=== PATIENT | male | born 1975 | race Caucasian/White ===

== ENCOUNTER 2017-09-21 16:43 | Emergency (ER) | payer BC ==
[2017-09-21] MEDS ORDERED: Aspirin 325 MG Tab.EC PO ONE (16:58)
[2017-09-21] MEDS ORDERED: Sodium Chloride 0.9% 10 ML Syringe FLUSH PRN (16:58)
[2017-09-21] MEDS ORDERED: Nitroglycerin 0.4 MG Tab.SL SL ONE (17:01)
--- NOTE | 2017-09-21 17:11 | EDM.PDOC ---
ED HPI GENERAL MEDICAL PROBLEM - General Chief Complaint: Chest Pain Stated Complaint: CHEST PAINS Time Seen by Provider: 09/21/17 16:48 Source of Information: Reports: Patient History Limitations: Reports: No Limitations - History of Present Illness INITIAL COMMENTS - FREE TEXT/NARRATIVE: 42-year-old male presents for evaluation and treatment of chest pain. Reports that the chest pain started about an hour prior to arrival in the ER. Identifies pain in the lower substernal/epigastric area with radiation to his back and up into his neck. He reports associated symptoms of shortness of breath and dizziness. He states that the pain was a 6 out of 10 earlier. It seems to be improving is currently 4 out of 10. Reports a sharp pain and tingling into his chin which lasted mayeb several seconds to a minute. No treatment prior to arrival in the ER, no aspirin. No nausea, vomiting, abdominal pain or any pain or swelling in the legs. Patient denies any cardiac history. Was seen in the ER approximately 2 years ago for palpitations. Diagnosed with anxiety. Did have a stress test after that which did not show any abnormalities. Patient reports that he chews tobacco. Denies any history of htn or high cholesterol. Family history of major cardiac events at a young age. Onset: Today, Sudden Duration: Hour(s): (1) right upper chest/epigastric/back Pain Score (Numeric/FACES): 4 - Related Data Allergies Allergy/AdvReac Type Severity Reaction Status Date / Time No Known Allergies Allergy Verified 09/21/17 16:52 Home Meds: Home Meds . [No Known Home Meds] 09/21/17 [History] Past Medical History - Past Health History Medical/Surgical History: Denies Medical/Surgical History Gastrointestinal History: Reports: GERD Social & Family History - Family History Family Medical History: Noncontributory - Caffeine Use Caffeine Use: Reports: Coffee - Recreational Drug Use Recreational Drug Use: No ED ROS GENERAL - Review of Systems Review Of Systems: See Below Constitutional: Reports: Diaphoresis Respiratory: Reports: Shortness of Breath. Denies: Cough Cardiovascular: Reports: Chest Pain (epigastic and substernal). Denies: Edema GI/Abdominal: Denies: Abdominal Pain, Nausea, Vomiting Musculoskeletal: Reports: Neck Pain, Back Pain. Denies: Leg Pain ED EXAM, GENERAL - Physical Exam Exam: See Below Exam Limited By: No Limitations General Appearance: Alert, WD/WN, No Apparent Distress Ears: Normal External Exam Nose: Normal Inspection Throat/Mouth: Normal Inspection, Normal Lips, Normal Voice, No Airway Compromise Neck: Normal Inspection Respiratory/Chest: No Respiratory Distress, Lungs Clear, Normal Breath Sounds, Chest Non-Tender Cardiovascular: Normal Peripheral Pulses, Regular Rate, Rhythm, No Murmur GI/Abdominal: Normal Bowel Sounds, Soft, Non-Tender Neurological: Alert, Oriented, Normal Cognition Psychiatric: Normal Affect, Normal Mood Skin Exam: Warm, Dry, Normal Color EKG INTERPRETATION EKG Date: 09/21/17 Time: 16:45 Rhythm: NSR Rate (Beats/Min): 83 [place]: Normal P-Wave: Present QRS: Normal ST-T: Normal QT: Normal EKG Interpretation Comments: NSR at [address] changes. Reviewed by myself and Dr. Sudarshan Handy. Course - Vital Signs Last Recorded V/S: Last Vital Signs Temp 97 F 09/21/17 16:43 Pulse 73 09/21/17 20:43 Resp 18 09/21/17 20:43 BP 128/82 09/21/17 20:43 Pulse Ox 97 09/21/17 20:43 - Orders/Labs/Meds Orders: Active Orders 24 hr Category Date Time Status Cardiac Monitoring [RC] . DIRECTED Care 09/21/17 16:58 Active EKG Documentation Completion [RC] ASDIRECTED Care 09/21/17 16:58 Active Peripheral IV Care [RC] . DIRECTED Care 09/21/17 16:58 Active Chest 1V Frontal [CR] Stat Exams 09/21/17 16:58 Taken Peripheral IV Insertion Adult [OM.PC] Routine Oth 09/21/17 16:57 Ordered EKG 12 Lead [EK] Stat Ther 09/21/17 16:58 Ordered Labs: Laboratory Tests 09/21/17 09/21/17 09/21/17 Range/Units 17:05 17:05 17:05 WBC 6.64 (4.23-9.07) K/mm3 RBC 5.10 (4.63-6.08) M/mm3 Hgb 15.5 (13.7-17.5) gm/L Hct 44.8 (40.1-51.0) % MCV 87.8 (79.0-92.2) fl MCH 30.4 (25.7-32.2) pg MCHC 34.6 (32.2-35.5) g/dl RDW Std Deviation 41.2 (35.1-43.9) fL Plt Count 181 (163-337) K/mm3 MPV 11.9 (9.4-12.3) fl Neut % (Auto) 55.2 (34.0-67.9) % Lymph % (Auto) 34.2 (21.8-53.1) % Barren % (Auto) 8.1 (5.3-12.2) % Eos % (Auto) 1.8 (0.8-7.0) Baso % (Auto) 0.5 (0.1-1.2) % Neut # (Auto) 3.67 (1.78-5.38) K/mm3 Lymph # (Auto) 2.27 (1.32-3.57) K/mm3 Barren # (Auto) 0.54 (0.30-0.82) K/mm3 Eos # (Auto) 0.12 (0.04-0.54) K/mm3 Baso # (Auto) 0.03 (0.01-0.08) K/mm3 PT 10.1 (9.5-12.1) SECONDS INR 0.93 APTT 27 (24-31) SECONDS Sodium 141 (136-145) mEq/L Potassium 3.9 (3.5-5.1) mEq/L Chloride 106 (98-107) mEq/L Carbon Dioxide 24 (21-32) mEq/L Anion Gap 14.9 (5-15) BUN 18 (7-18) mg/dL Creatinine 1.2 (0.7-1.3) mg/dL Est Cr Clr Drug Dosing 83.65 mL/min Estimated GFR (MDRD) > 60 (>60) mL/min BUN/Creatinine Ratio 15.0 (14-18) Glucose 99 (74-106) mg/dL Calcium 9.4 (8.5-10.1) mg/dL Total Bilirubin 0.8 (0.2-1.0) mg/dL AST 26 (15-37) U/L ALT 62 (16-63) U/L Alkaline Phosphatase 56 (46-116) U/L Troponin I < 0.017 (0.00-0.056) ng/mL Total Protein 7.7 (6.4-8.2) g/dl Albumin 4.3 (3.4-5.0) g/dl Globulin 3.4 gm/dL Albumin/Globulin Ratio 1.3 (1-2) Lipase 148 (73-393) U/L 09/21/17 Range/Units 19:49 WBC (4.23-9.07) K/mm3 RBC (4.63-6.08) M/mm3 Hgb (13.7-17.5) gm/L Hct (40.1-51.0) % MCV (79.0-92.2) fl MCH (25.7-32.2) pg MCHC (32.2-35.5) g/dl RDW Std Deviation (35.1-43.9) fL Plt Count (163-337) K/mm3 MPV (9.4-12.3) fl Neut % (Auto) (34.0-67.9) % Lymph % (Auto) (21.8-53.1) % Barren % (Auto) (5.3-12.2) % Eos % (Auto) (0.8-7.0) Baso % (Auto) (0.1-1.2) % Neut # (Auto) (1.78-5.38) K/mm3 Lymph # (Auto) (1.32-3.57) K/mm3 Barren # (Auto) (0.30-0.82) K/mm3 Eos # (Auto) (0.04-0.54) K/mm3 Baso # (Auto) (0.01-0.08) K/mm3 PT (9.5-12.1) SECONDS INR APTT (24-31) SECONDS Sodium (136-145) mEq/L Potassium (3.5-5.1) mEq/L Chloride (98-107) mEq/L Carbon Dioxide (21-32) mEq/L Anion Gap (5-15) BUN (7-18) mg/dL Creatinine (0.7-1.3) mg/dL Est Cr Clr Drug Dosing mL/min Estimated GFR (MDRD) (>60) mL/min BUN/Creatinine Ratio (14-18) Glucose (74-106) mg/dL Calcium (8.5-10.1) mg/dL Total Bilirubin (0.2-1.0) mg/dL AST (15-37) U/L ALT (16-63) U/L Alkaline Phosphatase (46-116) U/L Troponin I < 0.017 (0.00-0.056) ng/mL Total Protein (6.4-8.2) g/dl Albumin (3.4-5.0) g/dl Globulin gm/dL Albumin/Globulin Ratio (1-2) Lipase (73-393) U/L Meds: Medications Discontinued Medications Generic Name Dose Route Start Last Admin Trade Name Freq PRN Reason Stop Dose Admin Aspirin 325 mg 09/21/17 16:58 09/21/17 17:09 Ecotrin PO 09/21/17 16:59 325 mg ONETIME ONE Administration Al Hydroxide/Mg Hydroxide 30 0 ml 09/21/17 18:12 09/21/17 18:38 ml/ Lidocaine HCl 15 ml PO 09/21/17 18:13 45 ml ONETIME ONE Administration Nitroglycerin 0.4 mg 09/21/17 17:01 09/21/17 17:09 Nitrostat SL 09/21/17 17:02 0.4 mg ONETIME ONE Administration Sodium Chloride 10 ml 09/21/17 16:58 09/21/17 17:02 Saline Flush FLUSH 10 ml ASDIRECTED PRN Administration Keep Vein Open - Radiology Interpretation Free Text/Narrative:: chest xray shows no acute intrathroacic process - Re-Assessments/Exams Free Text/Narrative Re-Assessment/Exam: 09/21/17 18:51 I reviewed the labs, cxray and ekg with the patient. Pain is currently a 4/10. He declined anything for pain initially and continues to decline pain medication. Nitro and asprin helped minimally. Patient is currently resting comfortably. Nitro gave a minor headache. Plan will be to repeat the trop at the 3 hour jade. 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 Will try a GI cocktail with the patient to see if that helps with the pain. 09/21/17 20:29 Checked on the patient. His repeat troponin is within normal limits at less than 0.017. Pain is gone. He feels that the GI cocktail was the best intervention that we gave to him here in the ER to help with this chest pain. At this point we'll discharge him home. Follow-up with primary care within 2 weeks. Etiology felt to be GI in nature. Has a H/o GERD and upper endoscopy previously but states today this felt different from previous episodes. No currently on anything daily for GERD. Also question if this was a gallbladder attack. Encourage follow-up with PCP. Patient feels comfortable going home at this point. Discharge instructions documented. Departure - Departure Time of Disposition: 20:30 Disposition: Home, Self-Care 01 Condition: Fair Clinical Impression: Chest pain, atypical Instructions: Nonspecific Chest Pain, [id number] Referrals: Eloise Martinez, [facility] [Primary Care Provider] - Forms: ED Department Discharge Additional Instructions: Continue with your current plan of care. May take you omeprazole you have at home or another PPI. Follow-up with your PCP within 2 weeks for a recheck of your symptoms. Please return to the ER should you symptoms change or worsen. - My Orders Last 24 Hours: My Active Orders 09/21/17 16:57 Peripheral IV Insertion Adult [OM.PC] Routine 09/21/17 16:58 Cardiac Monitoring [RC] . DIRECTED EKG Documentation Completion [RC] ASDIRECTED Peripheral IV Care [RC] . DIRECTED Chest 1V Frontal [CR] Stat EKG 12 Lead [EK] Stat - Assessment/Plan Last 24 Hours: My Active Orders 09/21/17 16:57 Peripheral IV Insertion Adult [OM.PC] Routine 09/21/17 16:58 Cardiac Monitoring [RC] . DIRECTED EKG Documentation Completion [RC] ASDIRECTED Peripheral IV Care [RC] . DIRECTED Chest 1V Frontal [CR] Stat EKG 12 Lead [EK] Stat
[2017-09-21] MEDS ORDERED: Alum Hydrox/Mag Hydrox/Simeth 30 ML, Lidocaine 2% 15 ML PO ONE ×2 (18:12)
[2017-09-21 20:44] VITALS: BP 128/82
--- NOTE | 2017-09-22 07:44 | CR ---
Chest: Portable view of the chest was obtained. Comparison: Prior chest x-ray of 02/11/15. Heart size and mediastinum are normal. Lungs are clear. Bony structures are grossly intact. Impression: 1. Nothing acute is seen on portable chest x-ray. Diagnostic code #1
== END 2017-09-21 20:35 | disposition home or self-care (01) ==
LOC: JD.ED 16:43
DX: R07.89 Other chest pain (principal)
CPT/HCPCS: 36415; 71045; 80053; 83690; 84484; 85025; 85610; 85730; 93005; 99285; A9270; J7050; 93010; 99284

== ENCOUNTER 2021-05-22 14:23 | Emergency (ER) | payer BC ==
[2021-05-22 14:41] VITALS: BP 144/97; PULSE 93
[2021-05-22] MEDS ORDERED: Sodium Chloride 0.9% 10 ML Syringe FLUSH PRN (14:42)
== END 2021-05-22 16:42 | disposition home or self-care (01) ==
LOC: JD.ED 14:23
DX: K21.9 Gastro-esophageal reflux disease without esophagitis (principal); Z72.0 Tobacco use
CPT/HCPCS: 36415; 71045; 71045-26; 80053; 84484; 93005; 93010; 99285; 99285-25

== ENCOUNTER 2022-09-22 11:48 | Emergency (ER) | payer BC ==
[2022-09-22] MEDS ORDERED: Sodium Chloride 0.9% 10 ML Syringe FLUSH PRN (12:05)
[2022-09-22 12:45] LABS: BASOPHILS ABSOLUTE AUTO 0.04 K/mm3 (0.01-0.08); BASOPHILS PERCENT AUTO 0.7 % (0.1-1.2); EOSINOPHILS ABSOLUTE AUTO 0.08 K/mm3 (0.04-0.54); EOSINOPHILS PERCENT AUTO 1.4 (0.8-7.0); HEMATOCRIT 47.5 % (40.1-51.0); HEMOGLOBIN 16.4 gm/dl (13.7-17.5); IMMATURE GRAN ABSOLUTE AUTO 0.01 K/mm3 (0.00-0.10); IMMATURE GRAN PERCENT AUTO 0.2 % (<=1.0); LYMPHOCYTES ABSOLUTE AUTO 1.59 K/mm3 (1.32-3.57); LYMPHOCYTES PERCENT AUTO 27.8 % (21.8-53.1); MEAN CORPUSCULAR HEMOGLOBIN 31.4 pg (25.7-32.2); MEAN CORPUSCULAR HGB CONC 34.5 g/dl (32.2-35.5); MEAN PLATELET VOLUME 12.1 fl (9.4-12.3); MONOCYTES ABSOLUTE AUTO 0.47 K/mm3 (0.30-0.82); MONOCYTES PERCENT AUTO 8.2 % (5.3-12.2); NEUTROPHILS ABSOLUTE AUTO 3.52 K/mm3 (1.78-5.38); NEUTROPHILS PERCENT AUTO 61.7 % (34.0-67.9); PLATELET COUNT,PLT 161 K/mm3 (163-337); RED BLOOD CELL COUNT 5.23 M/mm3 (4.63-6.08); WHITE BLOOD CELL COUNT,WBC 5.71 K/mm3 (4.23-9.07)
[2022-09-22 12:48] LABS: MEAN CORPUSCULAR VOLUME 90.8 fl (79.0-92.2)
[2022-09-22 13:07] LABS: INR 0.98; PROTHROMBIN TIME 10.5 SECONDS (9.7-12.0)
[2022-09-22 13:09] LABS: PTT,PARTIAL THROMBOPLSTIN TIME 26.9 SECONDS (21.7-31.4)
[2022-09-22 13:13] LABS: D-DIMER QUANTITATIVE < 0.19 mg/L (0.19-0.50)
[2022-09-22 13:18] LABS: A/G RATIO 1.3 (1-2); ALANINE AMINOTRANSFERASE,ALT 81 U/L (16-63); ALBUMIN 4.3 g/dl (3.4-5.0); ALKALINE PHOSPHATASE 54 U/L (46-116); ANION GAP 12.7 (5-15); ASPARTATE AMNIOTRANSFERASE,AST 33 U/L (15-37); BILIRUBIN TOTAL 1.3 mg/dL (0.2-1.0); BLOOD UREA NITROGEN,BUN 13 mg/dL (7-18); BUN/CREATININE RATIO 10.8 (14-18); CALCIUM 9.1 mg/dL (8.5-10.1); CARBON DIOXIDE,CO2 24 mEq/L (21-32); CHLORIDE,CL 104 mEq/L (98-107); CREATININE 1.2 mg/dL (0.7-1.3); EST CRCL DRUG DOSING (CG) 74.42 mL/min; ESTIMATED GFR 76 mL/min (>60); GLUCOSE RANDOM 100 mg/dL (70-99); MAGNESIUM 1.8 mg/dL (1.8-2.4); POTASSIUM,K 3.7 mEq/L (3.5-5.1); PROTEIN TOTAL,TP 7.5 g/dl (6.4-8.2); SODIUM,NA 137 mEq/L (136-145)
[2022-09-22 13:25] LABS: TROPONIN I HIGH SENSITIVITY < 4 pg/mL (<=76)
[2022-09-22 14:13] VITALS: BP 138/95; PULSE 80
== END 2022-09-22 14:17 | disposition home or self-care (01) ==
LOC: JD.ED 11:48
DX: R42 Dizziness and giddiness (principal); R06.02 Shortness of breath; Z86.16 Personal history of COVID-19
CPT/HCPCS: 36415; 71045; 80053; 83735; 83880; 84484; 85025; 85379; 85610; 85730; 93005; 99285; J3490; 93010; 99283